=== PATIENT | male | born 1980 | race Caucasian/White ===

== ENCOUNTER 2016-09-15 17:47 | Emergency (ER) | payer MEDICAID ==
--- NOTE | 2016-09-17 12:40 | ER ---
ADMIT: 09/15/2016 RM/LOC: ER [facility] MR#: [id number] [facility] [address] [place] [id number] TIFFANY RODAS [address] [address] Emergency Room Report SEX: M AGE: 35 : 1980 DATE: 09/15/2016 HISTORY OF PRESENT ILLNESS: The patient is a 35-year-old male, presents to the emergency room 2 days after he fell while hoverboarding. 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 For about 2 to 3 days, he said he is having difficulty breathing, it hurts when he takes a deep breath and he said he is unable to lift his arms as he lifts higher the right arm goes, the more pain he gets in his right chest. He says it hurts to breathe. He does not seem to be in any acute respiratory distress. REVIEW OF SYSTEMS: Negative otherwise. PAST MEDICAL HISTORY: Negative. MEDICATIONS: He takes ibuprofen for pain control. SOCIAL HISTORY: He is a smoker of 1 pack and half a day, and he also uses marijuana on a daily basis. PHYSICAL EXAMINATION: VITAL SIGNS: Blood pressure 129/81 with a heart rate of 95, respirations 16, temp is 97.1, O2 sats are 97%. RESPIRATIONS: No distress at all. NECK: Supple. CVS: Regular in rate and rhythm. SKIN: Good color and turgor. EXTREMITIES: Well perfused. NEURO: Oriented x4. Mood and affect are appropriate. The chest x-ray with rib look did not show any pathology. Dr. Ahn reviewed it. Report written by Radiology. No labs done. He was given ketorolac, which was very helpful for pain control. CLINICAL IMPRESSION: Costochondritis. INSTRUCTIONS: See T-sheet. The patient discharged. Given Dr. Carlos Garcia for PCP, [facility]. CHANDA Stanley / Jr Ahn MD / pa JOB #: [id number] CC: Jr Ahn MD, Attending Physician Carlos Garcia MD, Family Physician
== END 2016-09-15 19:38 | disposition home or self-care (01) ==
LOC: ER 17:47
DX: M94.0 Chondrocostal junction syndrome [Tietze] (principal); F17.210 Nicotine dependence, cigarettes, uncomplicated; Z79.899 Other long term (current) drug therapy